=== PATIENT | male | born 1955 | race Hispanic/Latino ===

== ENCOUNTER 2023-12-03 15:06 | Inpatient (IN) | payer MEDICARE ==
[~2023-12-03] VITALS: Ht 175.3 cm; Wt 84.8 kg
[2023-12-03 16:04] LABS: BILIRUBIN,URINE 1+ (NEGATIVE); CLARITY,URINE CLOUDY (CLEAR); COLOR,URINE ORANGE (YELLOW); GLUCOSE, URINE 1+ (NEGATIVE); KETONES,URINE NEGATIVE (NEGATIVE); LEUKOCYTE ESTERASE ,URINE NEGATIVE (NEGATIVE); NITRITE,URINE POSITIVE (NEGATIVE); PH,URINE 6 (5 - 7); PROTEIN,URINE DIPSTICK 2+ (NEGATIVE); URINE UROBILINOGEN 4 mg/dL (0.2 - 1)
[2023-12-03] MEDS: ACETAMINOPHEN 325 MG TAB PO ONE (16:06)
[2023-12-03] MEDS ORDERED: ACETAMINOPHEN 325 MG TAB ONE (16:10)
[2023-12-03 16:14] LABS: BACTERIA,URINE MODERATE /HPF; RBC,URINE 0-5 /HPF (0-5)
[2023-12-03 16:25] LABS: BASOPHILS # (AUTO) 0.1 (0.0-0.1); BASOPHILS % 0.3 % (0.0-1.0); HEMATOCRIT 38.2 % (38.2-49.6); HEMOGLOBIN 13.1 g/dL (14.0-18.0); LYMPHOCYTES # (AUTO) 1.7 (1.0-3.2); LYMPHOCYTES % 7.1 % (18.0-39.1); MEAN CORPUSCULAR HEMOGLOBIN 31.4 pg (28-32); MEAN CORPUSCULAR HGB CONC 34.3 g/dL (31-35); MEAN CORPUSCULAR VOLUME 91.6 fL (81-99); MONOCYTES # (AUTO) 1.4 (0.2-0.8); MONOCYTES % 5.6 % (4.4-11.3); NEUTROPHILS # (AUTO) 21.2 (2.1-6.9); NEUTROPHILS % 86.2 % (38.7-80.0); PLATELET COUNT 209 x10e3/uL (140-360); RED BLOOD COUNT 4.17 x10e6/uL (4.3-5.7); RED CELL DISTRIBUTION WIDTH 13.2 % (11.7-14.4); WHITE BLOOD COUNT 24.59 x10e3/uL (4.8-10.8)
[2023-12-03 16:32] LABS: INR 1.14; PROTHROMBIN TIME 15.2 seconds (11.9-14.5)
[2023-12-03 16:33] LABS: PARTIAL THROMBOPLASTIN TIME 30.4 seconds (23.8-35.5)
[2023-12-03 16:39] LABS: ALBUMIN 3.7 g/dL (3.5-5.0); ALBUMIN/GLOBULIN RATIO 0.8 (0.8-2.0); ANION GAP 17.6 mmol/L (8-16); BILIRUBIN,TOTAL 1.9 mg/dL (0.2-1.2); CALCIUM 9.6 mg/dL (8.4-10.2); CREATININE, SERUM 1.03 mg/dL (0.72-1.25); POTASSIUM 3.6 mmol/L (3.5-5.1); TOTAL PROTEIN 8.1 g/dL (6.5-8.1)
[2023-12-03 17:39] VITALS: TEMP 99.1
[2023-12-03] MEDS: Vancomycin IV 1 GM in SODIUM CHLORIDE 0.9% 250ML 250 ML IV ONE (18:15)
[2023-12-03] MEDS ORDERED: SODIUM CHLORIDE FLUSH 10 ML SYR INJ PRN (18:45)
[2023-12-03 18:51] VITALS: PULSE 66; RESP 19
[2023-12-03] MEDS ORDERED: BISACODYL 10 MG SUPP PR PRN (20:15)
[2023-12-03] MEDS ORDERED: HYDRALAZINE HCL 20 MG/ML VIAL IV PRN (20:15)
[2023-12-03] MEDS: ONDANSETRON HCL INJ 2MG/ML 2ML 2 MG/ML VIAL IV PRN (20:37)
[2023-12-03] MEDS: Morphine 4mg INJECTION 4 MG/ML INJ IV PRN (20:38)
[2023-12-03 21:00] VITALS: BP 158/60; PULSE 69; RESP 18; TEMP 98.2; O2SAT 97
[2023-12-03 23:44] VITALS: BP 133/68; PULSE 91; RESP 20; TEMP 102.8; O2SAT 94
[2023-12-04] VITALS (7 sets, daily range): BP systolic 137–165; BP diastolic 51–72; PULSE 65–84; RESP 18–20; TEMP 97.9–99.9; O2SAT 96–99
[2023-12-04] MEDS: ACETAMINOPHEN 325 MG TAB PO PRN (00:21)
[2023-12-04] MEDS ORDERED: PNEUMOCOCCAL VACCINE POLYVALENT 23 MCG/0.5 ML VIAL IM SCH (04:59)
[2023-12-04 05:44] LABS: BASOPHILS # (AUTO) 0.1 (0.0-0.1); BASOPHILS % 0.4 % (0.0-1.0); HEMATOCRIT 36.9 % (38.2-49.6); HEMOGLOBIN 12.6 g/dL (14.0-18.0); LYMPHOCYTES # (AUTO) 1.2 (1.0-3.2); LYMPHOCYTES % 4.3 % (18.0-39.1); MEAN CORPUSCULAR HEMOGLOBIN 31.5 pg (28-32); MEAN CORPUSCULAR HGB CONC 34.1 g/dL (31-35); MEAN CORPUSCULAR VOLUME 92.3 fL (81-99); MONOCYTES # (AUTO) 1.8 (0.2-0.8); MONOCYTES % 6.5 % (4.4-11.3); NEUTROPHILS # (AUTO) 24.2 (2.1-6.9); NEUTROPHILS % 86.9 % (38.7-80.0); PLATELET COUNT 189 x10e3/uL (140-360); RED CELL DISTRIBUTION WIDTH 12.9 % (11.7-14.4); WHITE BLOOD COUNT 27.87 x10e3/uL (4.8-10.8)
[2023-12-04 06:21] LABS: ALBUMIN 3.4 g/dL (3.5-5.0); ALBUMIN/GLOBULIN RATIO 0.8 (0.8-2.0); ANION GAP 14.3 mmol/L (8-16); BILIRUBIN,TOTAL 1.7 mg/dL (0.2-1.2); CALCIUM 9.4 mg/dL (8.4-10.2); CREATININE, SERUM 0.99 mg/dL (0.72-1.25); TOTAL PROTEIN 7.5 g/dL (6.5-8.1)
[2023-12-04 06:26] LABS: POTASSIUM 3.3 mmol/L (3.5-5.1)
[2023-12-04] MEDS ORDERED: GLIMEPIRIDE2 MG PO (08:03)
[2023-12-04] MEDS ORDERED: ROSUVASTATIN-E1 EAC2 (08:04)
[2023-12-04] MEDS ORDERED: CANDESARTAN-HC1 EACH (08:04)
[2023-12-04 08:46] LABS: BAND NEUTROPHILS % (MANUAL) 2 %; LYMPHOCYTES % (MANUAL) 5 % (19-48); MONOCYTES % (MANUAL) 5 % (3.4-9.0); NEUTROPHILS % (MANUAL) 88 % (40-74)
[2023-12-04] MEDS: SENNOSIDES 8.6 MG TAB PO SCH (10:14)
[2023-12-04] MEDS: LOSARTAN POTASSIUM 25 MG TAB PO SCH ×2 (10:14→17:30)
[2023-12-04] MEDS: DOCUSATE SODIUM 100 MG CAP PO SCH (10:15)
[2023-12-04] MEDS ORDERED: DEXTROSE 50% SYRINGE 50 ML IV PRN (11:30)
[2023-12-04] MEDS: INSULIN LISPRO 100 UNIT/1 ML 3ML VIAL SQ SCH (15:11)
[2023-12-04] MEDS: POTASSIUM CHLORIDE 10MEQ EA PO ONE (15:51)
[2023-12-05] VITALS (10 sets, daily range): BP systolic 122–158; BP diastolic 57–73; PULSE 66–75; RESP 18–20; TEMP 97–99; O2SAT 92–99
[2023-12-05 06:19] LABS: BASOPHILS # (AUTO) 0.1 (0.0-0.1); BASOPHILS % 0.4 % (0.0-1.0); EOSINOPHILS # (AUTO) 0.1 (0.0-0.4); EOSINOPHILS % 0.6 % (0.0-6.0); HEMATOCRIT 35.5 % (38.2-49.6); HEMOGLOBIN 12.3 g/dL (14.0-18.0); LYMPHOCYTES % 11.7 % (18.0-39.1); MEAN CORPUSCULAR HEMOGLOBIN 31.2 pg (28-32); MEAN CORPUSCULAR HGB CONC 34.6 g/dL (31-35); MEAN CORPUSCULAR VOLUME 90.1 fL (81-99); MONOCYTES # (AUTO) 0.9 (0.2-0.8); MONOCYTES % 5.5 % (4.4-11.3); NEUTROPHILS # (AUTO) 13.5 (2.1-6.9); NEUTROPHILS % 81.3 % (38.7-80.0); PLATELET COUNT 215 x10e3/uL (140-360); RED BLOOD COUNT 3.94 x10e6/uL (4.3-5.7); RED CELL DISTRIBUTION WIDTH 12.8 % (11.7-14.4); WHITE BLOOD COUNT 16.62 x10e3/uL (4.8-10.8)
[2023-12-05 06:45] LABS: ALBUMIN/GLOBULIN RATIO 0.7 (0.8-2.0); ANION GAP 13.5 mmol/L (8-16); BILIRUBIN,TOTAL 1.2 mg/dL (0.2-1.2); CALCIUM 9.2 mg/dL (8.4-10.2); CREATININE, SERUM 0.91 mg/dL (0.72-1.25); MAGNESIUM 2.1 MG/DL (1.3-2.1); POTASSIUM 3.5 mmol/L (3.5-5.1); TOTAL PROTEIN 7.2 g/dL (6.5-8.1)
[2023-12-05 07:45] LABS: FERRITIN 1053.43 ng/mL (21.81-274.66)
[2023-12-05] MEDS: POTASSIUM CHLORIDE 10MEQ EA PO ONE (11:45)
[2023-12-05] MEDS: ENOXAPARIN SOD INJ 40 MG/0.4 ML SYR SC SCH (17:19)
[2023-12-06] VITALS: BP 162/81; PULSE 74; RESP 18; TEMP 97.9; O2SAT 97
[2023-12-06 05:30] LABS: BASOPHILS # (AUTO) 0.1 (0.0-0.1); BASOPHILS % 0.7 % (0.0-1.0); EOSINOPHILS # (AUTO) 0.2 (0.0-0.4); EOSINOPHILS % 1.5 % (0.0-6.0); HEMATOCRIT 33.7 % (38.2-49.6); HEMOGLOBIN 11.8 g/dL (14.0-18.0); LYMPHOCYTES # (AUTO) 1.7 (1.0-3.2); LYMPHOCYTES % 16.3 % (18.0-39.1); MEAN CORPUSCULAR HEMOGLOBIN 31.4 pg (28-32); MEAN CORPUSCULAR VOLUME 89.6 fL (81-99); MONOCYTES # (AUTO) 0.9 (0.2-0.8); NEUTROPHILS # (AUTO) 7.5 (2.1-6.9); NEUTROPHILS % 71.9 % (38.7-80.0); PLATELET COUNT 243 x10e3/uL (140-360); RED BLOOD COUNT 3.76 x10e6/uL (4.3-5.7); RED CELL DISTRIBUTION WIDTH 12.4 % (11.7-14.4); WHITE BLOOD COUNT 10.39 x10e3/uL (4.8-10.8)
[2023-12-06 05:51] LABS: ANION GAP 12.6 mmol/L (8-16); CALCIUM 9.1 mg/dL (8.4-10.2); CREATININE, SERUM 0.95 mg/dL (0.72-1.25); POTASSIUM 3.6 mmol/L (3.5-5.1)
[2023-12-06 06:24] VITALS: BP 164/82; PULSE 76; RESP 18; TEMP 98.2; O2SAT 98
[2023-12-06 08:00] VITALS: BP 129/46; PULSE 74; RESP 20; TEMP 98.4; O2SAT 100
[2023-12-06] MEDS ORDERED: LEVOFLOXACIN500 MG PO (11:58)
[2023-12-06 12:00] VITALS: BP 136/83; PULSE 69; RESP 20; TEMP 98.2; O2SAT 100
[2023-12-06] MEDS ORDERED: KETOROLAC TROME10 MG PO (14:12)
[2023-12-06] MEDS: POTASSIUM CHLORIDE 10MEQ EA PO ONE (15:04)
[2023-12-06] MEDS ORDERED: POTASSIUM CHLORIDE 10MEQ EA ONE (15:09)
== END 2023-12-06 17:10 | disposition home or self-care (01) | DRG 872 ==
LOC: ER 15:47 → ERHOLD 18:34 → MED/SURG2 20:20
PROVIDERS: ADMIT Internal Medicine; ATTEND Internal Medicine
DX: A41.51 Sepsis due to Escherichia coli [E. coli] (principal); N39.0 Urinary tract infection, site not specified; E87.1 Hypo-osmolality and hyponatremia; R17 Unspecified jaundice; N45.3 Epididymo-orchitis; R31.29 Other microscopic hematuria; E87.6 Hypokalemia; D64.9 Anemia, unspecified; I10 Essential (primary) hypertension; E78.2 Mixed hyperlipidemia; E11.9 Type 2 diabetes mellitus without complications; Z79.84 Long term (current) use of oral hypoglycemic drugs; W01.0XXA Fall on same level from slipping, tripping and stumbling without subsequent striking against object, initial encounter; Z79.899 Other long term (current) drug therapy
CPT/HCPCS: 36415; 76705; 76870; 80048; 80053; 81001; 82607; 82728; 82948; 83036; 83540; 83605; 83735; 84466; 85025; 85610; 85730; 87040; 87086; 87186; 93976; 96372; 99284; J1650; J2270; J2405; J2543; J7050